=== PATIENT | female | born 1975 | race African-American/Black ===

== ENCOUNTER 2020-06-09 16:17 | Emergency (ER) | payer MEDICAID ==
[~2020-06-09] VITALS: Ht 170.2 cm; Wt 100.0 kg
[2020-06-09 16:18] VITALS: BP 149/83
[2020-06-09] MEDS ORDERED: PredniSONE 20 MG TABLET PO ONE (18:30)
== END 2020-06-09 18:58 | disposition home or self-care (01) ==
LOC: EMS 16:17
DX: R21 Rash and other nonspecific skin eruption (principal)
CPT/HCPCS: 99283; J7512